=== PATIENT | male | born 2000 | race Caucasian/White ===

== ENCOUNTER 2024-11-10 11:07 | Emergency (ER) | payer BC, MEDICAID | END 2024-11-10 12:29 | disposition home or self-care (01) | LOC: JP.ED 11:07 | DX: J45.901 Unspecified asthma with (acute) exacerbation (principal); Z87.891 Personal history of nicotine dependence; Z88.0 Allergy status to penicillin | CPT/HCPCS: 71046; 94640; J7620; 99285; A9270-GY ==